=== PATIENT | male | born 1975 | race Caucasian/White ===

== ENCOUNTER 2020-08-10 18:31 | Inpatient (IN) | payer OTHER, SELFPAY ==
[~2020-08-10] VITALS: Ht 160 cm; Wt 62.6 kg
[2020-08-10 21:11] VITALS: BP 114/72
--- NOTE | 2020-08-10 21:15 | NUR ---
STILL IN AN AMBULANCE.
--- NOTE | 2020-08-10 21:55 | NUR ---
RECEIVED IN BED 5 WITH C/O DIFFICULTY BREATHING AND SOB X 4 DAYS. DENIES PAIN OR DISCOMFORT. RESPIRATIONS NOW ARE REGULAR AND UNLABORED.
[2020-08-10 22:27] LABS: EOSINOPHILS % (AUTO) 0.1 % (0.0-4.0); HEMATOCRIT 35.3 % (36-52); HEMOGLOBIN 11.7 g/dL (12.0-18.0); LYMPHOCYTES # (AUTO) 1.3 K/uL (2.0-11.5); LYMPHOCYTES % (AUTO) 8.9 % (20.5-51.1); MEAN CORPUSCULAR HEMOGLOBIN 28 pg (27-31); MEAN CORPUSCULAR HGB CONC 33 g/dL (33-37); MEAN CORPUSCULAR VOLUME 82.6 fL (80-94); PLATELET COUNT (AUTO) 580 K/uL (140-450); RED BLOOD CELL COUNT(AUTO) 4.27 MIL/uL (4.20-6.10); RED CELL DISTRIBUTION WIDTH 15.4 % (11.6-13.7); WHITE BLOOD COUNT (AUTO) 14.3 K/uL (4.8-10.8)
[2020-08-10 22:46] LABS: LACTATE DEHYDROGENASE 509 U/L (85-227)
[2020-08-10 22:47] LABS: ALBUMIN 3.1 g/dL (3.4-5.0); ANION GAP 15.2 (8-16); CARBON DIOXIDE 26.6 mmol/L (21-32); POTASSIUM 3.8 mmol/L (3.5-5.1); TOTAL BILIRUBIN 0.4 mg/dL (0.0-1.0)
[2020-08-10 22:56] LABS: C-REACTIVE PROTEIN QUANT 5.7 mg/dL (0.0-0.9)
[2020-08-10] MEDS ORDERED: MAG SULF 2000 MG/WATER PREMIX 50 ML IV PRN (23:15)
[2020-08-10] MEDS ORDERED: MAGNESIUM OXIDE 400 MG TAB PO PRN (23:15)
[2020-08-10] MEDS ORDERED: ONDANSETRON 4 MG/2 ML VIAL IVP PRN (23:15)
[2020-08-10] MEDS ORDERED: POTASSIUM CHLORIDE 10 MEQ TABER PO PRN (23:15)
[2020-08-10] MEDS ORDERED: ACETAMINOPHEN 325 MG TAB PO PRN (23:15)
[2020-08-10] MEDS ORDERED: LORazepam 1 MG TAB PO PRN (23:15)
[2020-08-10] MEDS ORDERED: HYDROcodone/APAP 5/325 MG 1 TAB TAB PO PRN (23:15)
[2020-08-10] MEDS ORDERED: KCL 20 MEQ/WATER INJ PREMIX 200 ML IV PRN (23:15)
[2020-08-10 23:52] LABS: PROTHROMBIN TIME 9.7 secs (10.8-13.4)
[2020-08-11] MEDS ORDERED: cefTRIAXone 1,000 MG VIAL ONE (00:58)
[2020-08-11] MEDS ORDERED: POTASSIUM CHLORIDE 10 MEQ TABER PO ONE (01:00)
--- NOTE | 2020-08-11 01:00 | NUR ---
AWAKE, DENIES PAIN OR DISCOMFORT. VOIDING PER URINAL
[2020-08-11] MEDS: NACL 0.9% 1,000 ML IV SCH ×2 (01:32→11:24)
[2020-08-11] MEDS ORDERED: AZITHROMYCIN 500 MG INJ VIAL IV ONE (02:16)
[2020-08-11] MEDS: AZITHROMYCIN 500 MG in DEXTROSE 5% 250 ML IV SCH (02:37)
--- NOTE | 2020-08-11 05:00 | NUR ---
PT IS PENDING ADMISSION. IS NOW STANDING AT BEDSIDE REQUESTING TO LEAVE AMA. Addendum: 08/11/20 at 0632 by NIEVES [phone]: REQUESTING TO LEAVE AMA
--- NOTE | 2020-08-11 05:12 | NUR ---
Daniel john in [facility] - 08/11/20 at 0512 by NIEVES ASSISTED INTO W/C FOR COMFORT
--- NOTE | 2020-08-11 06:31 | NUR ---
SPEAKING WITH DR SCHWARZ REGARDING AMA
--- NOTE | 2020-08-11 07:35 | NUR ---
Transfer of care at this time from RAD[facility] Dodson
--- NOTE | 2020-08-11 07:41 | NUR ---
pt given a urinal at bedside. unable to void at this time.
[2020-08-11 08:49] LABS: HEMATOCRIT 35.6 % (36-52); MEAN CORPUSCULAR HEMOGLOBIN 28 pg (27-31); MEAN CORPUSCULAR HGB CONC 34 g/dL (33-37); MEAN CORPUSCULAR VOLUME 82.4 fL (80-94); PLATELET COUNT (AUTO) 555 K/uL (140-450); RED BLOOD CELL COUNT(AUTO) 4.32 MIL/uL (4.20-6.10); RED CELL DISTRIBUTION WIDTH 15.4 % (11.6-13.7); WHITE BLOOD COUNT (AUTO) 11.8 K/uL (4.8-10.8)
--- NOTE | 2020-08-11 08:54 | NUR ---
amari and chente collected and lab called for pickup.
[2020-08-11] MEDS ORDERED: DEXAMETHASONE 4 MG/ML VIAL IVP ONE (09:00)
[2020-08-11 09:06] LABS: LYMPHOCYTES % (MANUAL) 12 % (20-46); MONOCYTES % (MANUAL) 8 % (5-12)
[2020-08-11 09:22] LABS: ALBUMIN 2.9 g/dL (3.4-5.0); CARBON DIOXIDE 22.4 mmol/L (21-32); MAGNESIUM 2.5 mg/dL (1.8-2.4); POTASSIUM 4.4 mmol/L (3.5-5.1); TOTAL BILIRUBIN 0.3 mg/dL (0.0-1.0)
[2020-08-11] MEDS ORDERED: DEXAMETHASONE 4 MG/ML VIAL ONE (10:15)
--- NOTE | 2020-08-11 10:17 | NUR ---
Pharmacy called to [facility].
[2020-08-11] MEDS: DOCUSATE SODIUM 100 MG GELCAP PO SCH (10:27)
--- NOTE | 2020-08-11 10:30 | NUR ---
urine collected and given to phleb to process in lab.
--- NOTE | 2020-08-11 11:57 | NUR ---
Pts updated on pts status. is requesting for pt to leave hospital ama and requesting for atb prescription. Pts advised to wait for MD to round on pt, verbalized understanding and agrees to care.
[2020-08-11 12:10] LABS: BILIRUBIN,URINE NEGATIVE (NEGATIVE); BLOOD, URINE NEGATIVE (NEGATIVE); COLOR,URINE YELLOW (YELLOW); LEUKOCYTE ESTERASE ,URINE NEGATIVE (NEGATIVE); NITRITE, URINE NEGATIVE (NEGATIVE); UGLUCOSE NEGATIVE (NEGATIVE)
[2020-08-11 12:12] LABS: APPEARANCE,URINE CLEAR (CLEAR)
--- NOTE | 2020-08-11 12:30 | NUR ---
PT SITTING UP IN BED EATING LUNCH, RR EVEN AND UNLABORED.
--- NOTE | 2020-08-11 14:14 | NUR ---
YVONNE ACEVEDO: FAXED ORDER FOR HOME 02 TO [facility] Addendum: 08/11/20 at 1607 by Jordyn Nix CM YVONNE ACEVEDO: FOLLOWED UP WITH RA AT [facility] THEY HAVE RECEIVED THE ORDER FOR PATIENT AND WILL BE WORKING ON IT. HE STATED THAT HIS DRIVERS WILL NOT BE ABLE TO ABLE TO DELIVER IT TODAY BECAUSE THEY ARE REALLY BUSY WITH OXYGEN ORDERS. Addendum: 08/12/20 at 0852 by Jordyn Nix CM YVONNE ACEVEDO: FOLLOWED UP WITH RA THIS MORNING FROM [facility]. HE WILL BE REACHING OUT TO PATIENTS FAMILY TO DISCUSS DELIVERY OF OXYGEN TODAY. Addendum: 08/12/20 at 1424 by Jordyn Nix CM YVONNE ACEVEDO: RECEIVED A CALL FROM THE PATIENTS SON. HE STATED THAT THE OXYGEN HAS BEEN DELIVERED TO PATIENTS HOME Addendum: 08/12/20 at 1426 by Jordyn Nix CM YVONNE ACEVEDO: NOTIFIED [facility] NEAL THAT HOME 02 HAS BEEN DELIVERED
--- NOTE | 2020-08-11 14:42 | NUR ---
PTS VS WNL, RR EVEN AND UNLABORED.
--- NOTE | 2020-08-11 17:51 | NUR ---
VS WNL. PT AMBULATED TO BATHROOM, STEADY GAIT.
--- NOTE | 2020-08-11 19:10 | NUR ---
RECEIVED PT IN BED WITH HOB ELEVATED. RESOIRATIONS ARE REGULAR AND UNLABORED. SMILING. DENIES PAIN OR DISCOMFORT
--- NOTE | 2020-08-11 19:17 | NUR ---
TRANSFER OF CARE AT THIS TIME TO RADHA FARMER
--- NOTE | 2020-08-11 20:00 | NUR ---
HAS BEEN RESTING COMFORTABLY IN NAD. ATE 100% OF DIET TRAY
[2020-08-11] MEDS: APIXABAN 2.5 MG TAB PO SCH (21:09)
--- NOTE | 2020-08-11 23:10 | NUR ---
ROOM AVAILABLE. REPORT CALLED. PT AWARE
--- NOTE | 2020-08-11 23:20 | NUR ---
TRANSFERED TO ROOM 105B, ATTACHED TO COMPONENT LAB TECH
[2020-08-11 23:23] VITALS: BP 114/63
--- NOTE | 2020-08-11 23:23 | NUR ---
RECEIVED PT FROM ER / COLT , AAOX4 , AMBULATE TO BED - ALTHOUGH C/O FATIGUE BUT HE HAS STEADY GAIT - STANDBY ASSIST . IV SITE INTACT AND PATENT . NID - O2 SAT WNL . / O2 AT 4LPM/NC . DENIES ANY PAIN , ON TELE MONITOR - SR , IV SITE INTACT AND PATENT . ADMISSION ASSESSMENT DONE . SAFETY MEASURES IN PLACE - CALL LIGHT WITHIN REACH . PLAN OF CARE DISCUSSED NEEDS REINFORCEMENT DUE TO LANGUAGE BARRIER. WILL CONT. TO MONITOR
[2020-08-12] MEDS ORDERED: cefTRIAXone 1,000 MG VIAL ONE (00:04)
[2020-08-12] MEDS: NACL 0.9% 1,000 ML IV SCH ×2 (00:31→12:57)
--- NOTE | 2020-08-12 02:00 | NUR ---
SLEEPING . CHEST RISE AND FALLL EQUALLY - O2 SAT WNL . CALL LIGHT WITHIN REACH .
[2020-08-12] MEDS ORDERED: AZITHROMYCIN 500 MG INJ VIAL IV ONE (02:17)
[2020-08-12] MEDS: AZITHROMYCIN 500 MG in DEXTROSE 5% 250 ML IV SCH (02:20)
[2020-08-12 04:00] VITALS: BP 115/69
--- NOTE | 2020-08-12 04:00 | NUR ---
MADE ROUNDS , NO S/SX OF ACUTE DISTRESS NOTED .CALL LIGHT WITHIN REACH .
--- NOTE | 2020-08-12 06:00 | NUR ---
NO COMPLAIN MADE . O2 SAT WNL .
[2020-08-12 06:53] LABS: BASOPHILS % (AUTO) 0.1 % (0.0-2.0); EOSINOPHILS # (AUTO) 0.1 K/uL (0-0.4); EOSINOPHILS % (AUTO) 0.8 % (0.0-4.0); HEMATOCRIT 34.6 % (36-52); HEMOGLOBIN 11.7 g/dL (12.0-18.0); LYMPHOCYTES # (AUTO) 1.3 K/uL (2.0-11.5); LYMPHOCYTES % (AUTO) 12.6 % (20.5-51.1); MEAN CORPUSCULAR HEMOGLOBIN 28 pg (27-31); MEAN CORPUSCULAR HGB CONC 34 g/dL (33-37); MEAN CORPUSCULAR VOLUME 82.8 fL (80-94); MONOCYTES # (AUTO) 0.6 K/uL (0.8-1.0); MONOCYTES % (AUTO) 5.9 % (1.7-9.3); NEUTROPHILS % (AUTO) 80.6 % (42.2-75.2); PLATELET COUNT (AUTO) 561 K/uL (140-450); RED BLOOD CELL COUNT(AUTO) 4.18 MIL/uL (4.20-6.10); RED CELL DISTRIBUTION WIDTH 15.4 % (11.6-13.7)
--- NOTE | 2020-08-12 06:57 | NUR ---
PATIENT HAS BEEN SCREENED AND CATEGORIZED MODERATE NUTRITION RISK. PATIENT WILL BE SEEN WITHIN 3-5 DAYS OF ADMISSION. 08/13/20 - 08/15/20 LAYO FRITZ MBA, RD
--- NOTE | 2020-08-12 07:14 | NUR ---
ENDORSED - PT - STABLE.
[2020-08-12 07:20] LABS: ALBUMIN 2.8 g/dL (3.4-5.0); ANION GAP 14.4 (8-16); CARBON DIOXIDE 23.3 mmol/L (21-32); MAGNESIUM 2.3 mg/dL (1.8-2.4); POTASSIUM 3.7 mmol/L (3.5-5.1); TOTAL BILIRUBIN 0.3 mg/dL (0.0-1.0)
[2020-08-12 08:00] VITALS: BP 113/77
--- NOTE | 2020-08-12 08:15 | NUR ---
PATIENT IS AOX4, SINUS RHYTHM, RESPIRATIONS EVEN AND UNLABORED ON 4L NASAL CANNULA. LUNGS DIMINISHED BILATERAL BASES. DENIES PAIN. DENIES SHORTNESS OF BREATH. IV FLUIDS INFUSING. TOLERATING DIET WELL WITH NO N/V. UPDATED PATIENT ON PLAN OF CARE. WILL CONTINUE TO MONITOR.
[2020-08-12] MEDS: DOCUSATE SODIUM 100 MG GELCAP PO SCH (08:57)
[2020-08-12] MEDS: DEXAMETHASONE 4 MG/ML VIAL IVP SCH (08:57)
[2020-08-12] MEDS: APIXABAN 2.5 MG TAB PO SCH ×2 (08:59→21:00)
[2020-08-12 12:00] VITALS: BP 124/84
[2020-08-12] MEDS ORDERED: APIX5TAB PO (12:23)
[2020-08-12] MEDS ORDERED: DEC1 PO (12:24)
--- NOTE | 2020-08-12 14:13 | NUR ---
SOCIAL WORK NOTE: Patient's Orientation Unable To Assess Information Provided By KEITH EDWARDS - Comments SW WAS UNABLE TO MEET PATIENT AT BEDSIDE DUE TO MEDICAL CONDITION. SW COMPLETED ASSESSMENT WITH PATIENT'S . Repair Welder, Realtionship and Phone Number KEITH BARAHONA [phone] Healthcare Power of Dye Winch Operator No Does Patient Have a POLST No Identifying Problems No Social Work Triggers Is A Social Work Consult Needed No Mandate Report Filed No Explanation Of Identifying Problems PATIENT IS A 44-YEAR-OLD MALE ADMITTED FOR ACUTE HYPOXIC RESPIRATORY FAILURE. PATIENT HAS NO PERTINENT PMHX. PATIENT'S REPORTED NO HISTORY OF SUBSTANCE ABUSE OR MENTAL HEALTH. Admitted From Home Pre-Admission Level Of Functioning Status Independent With DME Prior Resources/Services Used In Last 12 Months No Prior Resources Used Prior DME Home Oxygen Living Situation Lives With Family House Patient Had Caregiver No Home Support No Caregiver Issues Financial Issues No Known Financial Issue Referral To The Financial Counselor Needed No Factors/Needs No D/C Needs Identified Pt/Rep Participated In Discharge Plan Yes Patient/Family Agress With Discharge Plan Yes Discharge Plan Comments TENTATIVE DISCHARGE PLAN IS FOR PATIENT TO RETURN HOME. DC Plan Status Initiated
[2020-08-12 16:00] VITALS: BP 109/79
--- NOTE | 2020-08-12 18:45 | NUR ---
PATIENT WAS ON 4L NASAL CANNULA ALL SHIFT, SATURATING WELL. DENIES PAIN. 88% ON ROOM AIR, WEANED TO 3L NASAL CANNULA TOLERATING WELL. TOLERATING ALL MEALS WELL WITH NO N/V. VITAL SIGNS STABLE. WILL ENDORSE TO NIGHT RN.
--- NOTE | 2020-08-12 19:27 | NUR ---
RECEIVED REPORT FROM DAYSHIFT NURSE FOR CONTINUITY OF CARE, PT IN STABLE CONDITION.
[2020-08-12 20:00] VITALS: BP 112/71
--- NOTE | 2020-08-12 21:50 | NUR ---
PT GIVEN ORDERED ELIQUIS, EDUCATION REGARDING MEDICATION AND SIDE EFFECTS PROVIDED AT BEDSIDE, PT VERBALIZED UNDERSTANDING.
--- NOTE | 2020-08-12 22:44 | NUR ---
PT NORMAL SALINE BAG WAS REPLACED AND IS RUNNING AT 80MLS/HR ORDERED. PT ALSO GIVEN NORCO FOR C/O OF MODERATE / PAIN IN THROAT.
[2020-08-13] VITALS: BP 98/70
--- NOTE | 2020-08-13 01:30 | NUR ---
ROCEPHIN HUNG AND RUNNING AT 100MLS/HR. PT CPONTINUESW ON 3 LITERS VIA N/C NO S/S OF PAIN OR DISTRESS NOTED.
[2020-08-13] MEDS: NACL 0.9% 1,000 ML IV SCH (01:34)
[2020-08-13] MEDS: AZITHROMYCIN 500 MG in DEXTROSE 5% 250 ML IV SCH (02:00)
--- NOTE | 2020-08-13 02:30 | NUR ---
ZITHROMAX HUNG AND RUNNING ORDERED. PT RESTING WITH EYES CLOSED ALL DROPLET PRECAUTIONS IN PLACE.
[2020-08-13 04:00] VITALS: BP 108/71
--- NOTE | 2020-08-13 04:45 | NUR ---
ROUNDS DONE PT OIN BED RESTING WITH EYES CLOSED NO S/S OF PAIN OR DISTRESS NOTED.
[2020-08-13 08:00] VITALS: BP 113/77
[2020-08-13 08:42] LABS: ALBUMIN 2.7 g/dL (3.4-5.0); ANION GAP 12.8 (8-16); BASOPHILS % (AUTO) 0.1 % (0.0-2.0); CARBON DIOXIDE 25.1 mmol/L (21-32); EOSINOPHILS # (AUTO) 0.2 K/uL (0-0.4); EOSINOPHILS % (AUTO) 1.6 % (0.0-4.0); HEMATOCRIT 33.2 % (36-52); HEMOGLOBIN 11.2 g/dL (12.0-18.0); LYMPHOCYTES # (AUTO) 1.5 K/uL (2.0-11.5); LYMPHOCYTES % (AUTO) 14.1 % (20.5-51.1); MAGNESIUM 2.2 mg/dL (1.8-2.4); MEAN CORPUSCULAR HEMOGLOBIN 28 pg (27-31); MEAN CORPUSCULAR HGB CONC 34 g/dL (33-37); MEAN CORPUSCULAR VOLUME 82.5 fL (80-94); MONOCYTES # (AUTO) 0.6 K/uL (0.8-1.0); MONOCYTES % (AUTO) 5.4 % (1.7-9.3); NEUTROPHILS # (AUTO) 8.2 K/uL (1.8-7.7); NEUTROPHILS % (AUTO) 78.8 % (42.2-75.2); PLATELET COUNT (AUTO) 580 K/uL (140-450); POTASSIUM 3.9 mmol/L (3.5-5.1); RED BLOOD CELL COUNT(AUTO) 4.03 MIL/uL (4.20-6.10); RED CELL DISTRIBUTION WIDTH 15.3 % (11.6-13.7); TOTAL BILIRUBIN 0.2 mg/dL (0.0-1.0); WHITE BLOOD COUNT (AUTO) 10.4 K/uL (4.8-10.8)
[2020-08-13] MEDS: DEXAMETHASONE 4 MG/ML VIAL IVP SCH (09:24)
[2020-08-13] MEDS: APIXABAN 2.5 MG TAB PO SCH (09:25)
[2020-08-13] MEDS: DOCUSATE SODIUM 100 MG GELCAP PO SCH (09:25)
--- NOTE | 2020-08-13 09:32 | NUR ---
SCHEDULED MORNING MEDICATIONS GIVEN. EDUCATION PROVIDED. PATIENT TOLERATED WELL. PATIENT HAVING BREAKFAST IN SITTING POSITION, DENIES PAIN OR DISCOMFORT AT THIS TIME. SAFETY MEASURES IN PLACE, WILL CONTINUE TO MONITOR.
== END 2020-08-13 15:50 | disposition home or self-care (01) | DRG 137 ==
LOC: MED 18:31 → MTU 23:20
PROVIDERS: ADMIT Hospitalist; ATTEND Hospitalist
DX: U07.1 COVID-19 (principal); J96.01 Acute respiratory failure with hypoxia; D68.59 Other primary thrombophilia; D72.829 Elevated white blood cell count, unspecified; Z20.828 Contact with and (suspected) exposure to other viral communicable diseases
CPT/HCPCS: 36415; 36600; 71045; 80053; 81003; 82550; 82728; 82803; 83605; 83615; 83735; 83880; 84484; 85025; 85379; 85384; 85610; 85730; 86140; 87040; 87081; 87086; 87804; 93005; 99291; J0456; J0696; J1100; J1644; J3475; J7060; U0003

== ENCOUNTER 2024-01-13 16:12 | Emergency (ER) | payer OTHER ==
[~2024-01-13] VITALS: Ht 157.5 cm; Wt 81.6 kg
[~2024-01-13 16:12] MED LIST: APIX5TAB PO; DEC1 PO
[2024-01-13 16:33] VITALS: BP 130/86; PULSE 77; RESP 20; TEMP 98; O2SAT 97
[2024-01-13] MEDS ORDERED: ALBU0.0912 IH ×2 (18:18→21:09)
[2024-01-13] MEDS ORDERED: PROM118S5 PO ×2 (18:18→21:09)
== END 2024-01-13 18:29 | disposition home or self-care (01) ==
LOC: MED 16:12
DX: J06.9 Acute upper respiratory infection, unspecified (principal); Z79.899 Other long term (current) drug therapy
CPT/HCPCS: 71045; 93005; 99283